=== PATIENT | female | born 1980 | race Caucasian/White ===

== ENCOUNTER 2020-10-07 07:48 | Inpatient (IN) ==
[2020-10-07] MEDS ORDERED: 0.9 % Sodium Chloride 1,000 ML IVC ONE (08:11)
[2020-10-07] MEDS ORDERED: Ondansetron 4 MG/2 ML VIAL IVP ONE (08:11)
[2020-10-07] MEDS ORDERED: Famotidine 20 MG/2 ML VIAL IVP ONE (08:12)
[2020-10-07 08:29] LABS: Basophils % 0.2 %; Eosinophils % 0.1 %; Hematocrit 45.2 % (35.3-44.9); Hemoglobin 14.9 g/dL (11.5-15.4); Immature Granulocytes % 0.5 % (0-4); Lymphocytes # 1.3 K/mcL (0.6-4.6); Lymphocytes % 6.8 %; Mean Corpuscular Hemoglobin 28.7 pg (28.0-33.3); Mean Corpuscular Volume 87.1 fL (83.0-100.0); Mean Platelet Volume 10.3 fL (9.4-12.4); Monocytes # 1.6 K/mcL (0.0-1.3); Monocytes % 8.4 %; Neutrophils # 15.5 K/mcL (1.6-8.9); Platelet Count 407 K/mcL (140-400); Red Blood Count 5.19 M/mcL (3.82-4.97); Red Cell Distribution Width 14.3 % (11.5-14.5); White Blood Count 18.5 K/mcL (4.3-11.1)
[2020-10-07] MEDS ORDERED: *HR* HYDROmorphone (PF) 1 MG/ML SYRINGE IVP ONE (08:38)
[2020-10-07] MEDS ORDERED: *HR* Promethazine 25 MG/ML VIAL IM ONE (08:50)
[2020-10-07] MEDS ORDERED: Isovue-370 500 ML BOTTLE IVP ONE (08:58)
[2020-10-07 09:22] LABS: Alanine Aminotransferase 1630 Units/L (7-52); Albumin 4.6 g/dL (3.5-5.7); Albumin/Globulin Ratio 1.6 (1.1-2.2); Alkaline Phosphatase 260 Units/L (34-104); Aspartate Amino Transferase 1082 Units/L (13-39); BUN/Creatinine Ratio 19 (6-26); Bilirubin,Total 2.1 mg/dL (0.3-1.0); Blood Urea Nitrogen 12 mg/dL (6-20); Calcium 9.6 mg/dL (8.6-10.3); Carbon Dioxide 23 mEq/L (23-29); Chloride 100 mEq/L (98-107); Globulin 2.9 g/dL (2.4-3.5); Glucose 169 mg/dL (70-105); Lipase > 1800 Units/L (11-82); Osmolality,Calculated 284 (280-300); Potassium 3.8 mEq/L (3.5-5.1); Sodium 135 mEq/L (136-145); Total Protein 7.5 g/dL (6.4-8.9); eGFR For African Americans > 60 (> 60); eGFR For Non-African Americans > 60 (> 60)
[2020-10-07] MEDS ORDERED: Naloxone 0.4 MG/ML INJ IVP PRN (12:30)
[2020-10-07] MEDS: *HR* HYDROmorphone (PF) 1 MG/ML SYRINGE IVP PRN ×5 (13:11→22:40)
[2020-10-07] MEDS: Ondansetron 4 MG/2 ML VIAL IVP PRN (13:11)
[2020-10-07] MEDS: Ringers Solution, Lactated 1,000 ML IVC SCH ×2 (13:11→18:36)
[2020-10-07] MEDS: MethylPREDNISolone 40 MG/ML VIAL IVP SCH (13:12)
[2020-10-07 13:35] LABS: Triglycerides 117 mg/dL (< 150)
[2020-10-07 14:08] LABS: Hepatitis B Surface Antibody < 3.10 mIU/mL
[2020-10-07 14:19] LABS: Hepatitis B Surface Antigen Nonreactive (Nonreactive)
[2020-10-07 14:48] LABS: Hepatitis B Core IgM Nonreactive (Nonreactive); Hepatitis C Virus Antibody Nonreactive (Nonreactive)
[2020-10-07 16:43] LABS: Hepatitis A Antibody IgM Nonreactive (Nonreactive)
[2020-10-07] MEDS: Pantoprazole 40 MG VIAL IVP SCH (17:35)
[2020-10-07] MEDS ORDERED: *HR* Heparin 5,000 UNIT/ML VIAL SQ SCH (18:00)
[2020-10-08] MEDS: Ringers Solution, Lactated 1,000 ML IVC SCH ×4 (00:07→20:50)
[2020-10-08] MEDS: Ondansetron 4 MG/2 ML VIAL IVP PRN (00:10)
[2020-10-08] MEDS: *HR* HYDROmorphone (PF) 1 MG/ML SYRINGE IVP PRN ×9 (00:45→22:30)
[2020-10-08] MEDS: *HR* Enoxaparin 40 MG/0.4 ML SYRINGE SQ SCH (05:05)
[2020-10-08] MEDS: Pantoprazole 40 MG VIAL IVP SCH ×2 (05:05→18:25)
[2020-10-08 05:56] LABS: Basophils % 0.1 %; Hematocrit 40.1 % (35.3-44.9); Immature Granulocytes % 0.4 % (0-4); Lymphocytes # 0.9 K/mcL (0.6-4.6); Lymphocytes % 5.1 %; Mean Corpuscular HGB Conc 32.2 g/dL (31.6-35.5); Mean Corpuscular Hemoglobin 28.9 pg (28.0-33.3); Mean Corpuscular Volume 89.9 fL (83.0-100.0); Mean Platelet Volume 10.3 fL (9.4-12.4); Monocytes % 6.1 %; Neutrophils # 15.2 K/mcL (1.6-8.9); Platelet Count 303 K/mcL (140-400); Red Blood Count 4.46 M/mcL (3.82-4.97); Red Cell Distribution Width 14.8 % (11.5-14.5); Segmented Neutrophils % 88.3 %; White Blood Count 17.2 K/mcL (4.3-11.1)
[2020-10-08 06:00] LABS: Hemoglobin 12.9 g/dL (11.5-15.4)
[2020-10-08 06:35] LABS: Alanine Aminotransferase 1427 Units/L (7-52); Albumin 3.9 g/dL (3.5-5.7); Albumin/Globulin Ratio 1.7 (1.1-2.2); Alkaline Phosphatase 239 Units/L (34-104); Aspartate Amino Transferase 472 Units/L (13-39); BUN/Creatinine Ratio 14 (6-26); Bilirubin,Direct 0.5 mg/dL (0.0-0.2); Bilirubin,Indirect 0.7 mg/dL (0.0-1.0); Bilirubin,Total 1.2 mg/dL (0.3-1.0); Blood Urea Nitrogen 7 mg/dL (6-20); Calcium 8.8 mg/dL (8.6-10.3); Carbon Dioxide 27 mEq/L (23-29); Chloride 102 mEq/L (98-107); Chol/HDL Ratio 3.3 (0-4.9); Cholesterol 189 mg/dL (< 200); Globulin 2.3 g/dL (2.4-3.5); Glucose 123 mg/dL (70-105); HDL Cholesterol 58 mg/dL (40-59); LDL Cholesterol,Calculated 119 mg/dL (< 100); Osmolality,Calculated 279 (280-300); Potassium 3.8 mEq/L (3.5-5.1); Sodium 135 mEq/L (136-145); Total Protein 6.2 g/dL (6.4-8.9); Triglycerides 60 mg/dL (< 150); eGFR For African Americans > 60 (> 60); eGFR For Non-African Americans > 60 (> 60)
[2020-10-08 07:43] LABS: Estimated Average Glucose 123 mg/dl; Hemoglobin A1C 5.9 %
[2020-10-08] MEDS: MethylPREDNISolone 40 MG/ML VIAL IVP SCH (08:49)
[2020-10-09] MEDS: *HR* HYDROmorphone (PF) 1 MG/ML SYRINGE IVP PRN ×7 (00:30→20:52)
[2020-10-09] MEDS: Ringers Solution, Lactated 1,000 ML IVC SCH ×6 (02:25→21:41)
[2020-10-09 04:53] LABS: Hematocrit 37.9 % (35.3-44.9); Hemoglobin 12.3 g/dL (11.5-15.4); Mean Corpuscular HGB Conc 32.5 g/dL (31.6-35.5); Mean Corpuscular Hemoglobin 29.1 pg (28.0-33.3); Mean Corpuscular Volume 89.6 fL (83.0-100.0); Mean Platelet Volume 10.5 fL (9.4-12.4); Platelet Count 251 K/mcL (140-400); Red Blood Count 4.23 M/mcL (3.82-4.97); Red Cell Distribution Width 14.8 % (11.5-14.5); White Blood Count 15.7 K/mcL (4.3-11.1)
[2020-10-09 05:41] LABS: Alanine Aminotransferase 856 Units/L (7-52); Albumin 3.7 g/dL (3.5-5.7); Albumin/Globulin Ratio 1.5 (1.1-2.2); Alkaline Phosphatase 187 Units/L (34-104); Aspartate Amino Transferase 109 Units/L (13-39); BUN/Creatinine Ratio 13 (6-26); Bilirubin,Direct 0.3 mg/dL (0.0-0.2); Bilirubin,Indirect 0.7 mg/dL (0.0-1.0); Blood Urea Nitrogen 6 mg/dL (6-20); Calcium 8.6 mg/dL (8.6-10.3); Carbon Dioxide 27 mEq/L (23-29); Chloride 100 mEq/L (98-107); Globulin 2.5 g/dL (2.4-3.5); Glucose 117 mg/dL (70-105); Osmolality,Calculated 279 (280-300); Potassium 3.4 mEq/L (3.5-5.1); Sodium 135 mEq/L (136-145); Total Protein 6.2 g/dL (6.4-8.9); eGFR For African Americans > 60 (> 60); eGFR For Non-African Americans > 60 (> 60)
[2020-10-09] MEDS: *HR* Enoxaparin 40 MG/0.4 ML SYRINGE SQ SCH (06:32)
[2020-10-09] MEDS: Pantoprazole 40 MG VIAL IVP SCH ×2 (06:32→17:16)
[2020-10-09] MEDS: MethylPREDNISolone 40 MG/ML VIAL IVP SCH (08:51)
[2020-10-09 15:40] LABS: Bacteria,Urine Few per hpf (None-Few); Bilirubin,Urine Negative (Negative); Blood,Urine Trace (Negative); Clarity,Urine Clear (Clear); Color,Urine Colorless (Yellow); Glucose,Urine (UA) Normal (Normal); Ketones,Urine Negative (Negative); Leukocyte Esterase,Urine Negative (Negative); Nitrite,Urine Negative (Negative); Protein,Urine Negative (Neg-Trace); RBC,Urine 0-3 per hpf (0-3); Specific Gravity,Urine 1.007 (1.010-1.025); Squamous Epithelial Cell,Urine Few per hpf (None-Few); Urobilinogen,Urine Normal (Normal); WBC,Urine 0-3 per hpf (0-3)
[2020-10-09] MEDS: *HR* OxyCODONE Immed Rel 5 MG TABLET PO PRN ×2 (18:04→23:20)
[2020-10-10] MEDS: Ringers Solution, Lactated 1,000 ML IVC SCH ×3 (02:40→19:37)
[2020-10-10] MEDS: Levothyroxine 25 MCG TABLET PO SCH (05:52)
[2020-10-10] MEDS: Pantoprazole 40 MG VIAL IVP SCH ×2 (05:52→16:52)
[2020-10-10] MEDS: *HR* HYDROmorphone (PF) 1 MG/ML SYRINGE IVP PRN (05:54)
[2020-10-10] MEDS: *HR* Enoxaparin 40 MG/0.4 ML SYRINGE SQ SCH (05:55)
[2020-10-10 06:28] LABS: Alanine Aminotransferase 481 Units/L (7-52); Albumin 3.6 g/dL (3.5-5.7); Albumin/Globulin Ratio 1.3 (1.1-2.2); Alkaline Phosphatase 150 Units/L (34-104); Aspartate Amino Transferase 31 Units/L (13-39); BUN/Creatinine Ratio 11 (6-26); Blood Urea Nitrogen 5 mg/dL (6-20); Calcium 8.9 mg/dL (8.6-10.3); Carbon Dioxide 29 mEq/L (23-29); Chloride 99 mEq/L (98-107); Globulin 2.7 g/dL (2.4-3.5); Glucose 131 mg/dL (70-105); Osmolality,Calculated 281 (280-300); Potassium 3.4 mEq/L (3.5-5.1); Sodium 136 mEq/L (136-145); Total Protein 6.3 g/dL (6.4-8.9); eGFR For African Americans > 60 (> 60); eGFR For Non-African Americans > 60 (> 60)
[2020-10-10 06:54] LABS: Hematocrit 38.8 % (35.3-44.9); Hemoglobin 12.3 g/dL (11.5-15.4); Mean Corpuscular HGB Conc 31.7 g/dL (31.6-35.5); Mean Corpuscular Hemoglobin 28.7 pg (28.0-33.3); Mean Corpuscular Volume 90.7 fL (83.0-100.0); Mean Platelet Volume 10.4 fL (9.4-12.4); Platelet Count 235 K/mcL (140-400); Red Blood Count 4.28 M/mcL (3.82-4.97); Red Cell Distribution Width 14.3 % (11.5-14.5); White Blood Count 14.7 K/mcL (4.3-11.1)
[2020-10-10] MEDS: MethylPREDNISolone 40 MG/ML VIAL IVP SCH (08:52)
[2020-10-10] MEDS: Cyclopentolate 2 ML BOTTLE LEFT EYE SCH (08:56)
[2020-10-10] MEDS ORDERED: Isovue-370 500 ML BOTTLE IVP ONE (10:52)
[2020-10-10] MEDS: *HR* OxyCODONE Immed Rel 5 MG TABLET PO PRN (19:39)
[2020-10-10] MEDS: Ondansetron 4 MG/2 ML VIAL IVP PRN (21:47)
[2020-10-10] MEDS ORDERED: Prochlorperazine 10 MG/2 ML VIAL IVP PRN (22:31)
[2020-10-11] MEDS: *HR* OxyCODONE Immed Rel 5 MG TABLET PO PRN ×2 (00:51→06:07)
[2020-10-11] MEDS: Ringers Solution, Lactated 1,000 ML IVC SCH ×3 (02:18→19:33)
[2020-10-11 05:06] LABS: Hematocrit 37.9 % (35.3-44.9); Hemoglobin 11.7 g/dL (11.5-15.4); Mean Corpuscular HGB Conc 30.9 g/dL (31.6-35.5); Mean Corpuscular Volume 90.7 fL (83.0-100.0); Mean Platelet Volume 10.5 fL (9.4-12.4); Platelet Count 242 K/mcL (140-400); Red Blood Count 4.18 M/mcL (3.82-4.97); Red Cell Distribution Width 14.2 % (11.5-14.5)
[2020-10-11 05:21] LABS: BUN/Creatinine Ratio 10 (6-26); Blood Urea Nitrogen 6 mg/dL (6-20); Calcium 8.7 mg/dL (8.6-10.3); Carbon Dioxide 31 mEq/L (23-29); Chloride 102 mEq/L (98-107); Glucose 116 mg/dL (70-105); Osmolality,Calculated 287 (280-300); Potassium 3.4 mEq/L (3.5-5.1); Sodium 139 mEq/L (136-145); eGFR For African Americans > 60 (> 60); eGFR For Non-African Americans > 60 (> 60)
[2020-10-11] MEDS: *HR* Enoxaparin 40 MG/0.4 ML SYRINGE SQ SCH (06:00)
[2020-10-11] MEDS: Pantoprazole 40 MG VIAL IVP SCH ×2 (06:00→19:33)
[2020-10-11] MEDS: Levothyroxine 25 MCG TABLET PO SCH (06:01)
[2020-10-11] MEDS: predniSONE 5 MG TABLET PO SCH (08:26)
[2020-10-11] MEDS: Cyclopentolate 2 ML BOTTLE LEFT EYE SCH (08:26)
[2020-10-11] MEDS ORDERED: Ibuprofen 600 MG TABLET PO ONE (20:18)
[2020-10-12] MEDS: Ringers Solution, Lactated 1,000 ML IVC SCH (02:42)
[2020-10-12 04:45] LABS: Hematocrit 34.6 % (35.3-44.9); Hemoglobin 10.7 g/dL (11.5-15.4); Mean Corpuscular HGB Conc 30.9 g/dL (31.6-35.5); Mean Corpuscular Hemoglobin 28.4 pg (28.0-33.3); Mean Corpuscular Volume 91.8 fL (83.0-100.0); Mean Platelet Volume 10.8 fL (9.4-12.4); Platelet Count 242 K/mcL (140-400); Red Blood Count 3.77 M/mcL (3.82-4.97); Red Cell Distribution Width 13.9 % (11.5-14.5); White Blood Count 12.7 K/mcL (4.3-11.1)
[2020-10-12 05:03] LABS: BUN/Creatinine Ratio 14 (6-26); Blood Urea Nitrogen 8 mg/dL (6-20); Calcium 8.5 mg/dL (8.6-10.3); Carbon Dioxide 27 mEq/L (23-29); Chloride 105 mEq/L (98-107); Glucose 135 mg/dL (70-105); Osmolality,Calculated 288 (280-300); Potassium 3.6 mEq/L (3.5-5.1); Sodium 139 mEq/L (136-145); eGFR For African Americans > 60 (> 60); eGFR For Non-African Americans > 60 (> 60)
[2020-10-12] MEDS: Levothyroxine 25 MCG TABLET PO SCH (06:12)
[2020-10-12] MEDS: *HR* Enoxaparin 40 MG/0.4 ML SYRINGE SQ SCH (06:12)
[2020-10-12] MEDS: Pantoprazole 40 MG VIAL IVP SCH (06:12)
[2020-10-12 07:33] VITALS: BP 131/79; PULSE 68; TEMP 98.5; O2SAT 95
[2020-10-12] MEDS: predniSONE 5 MG TABLET PO SCH (07:54)
[2020-10-12] MEDS: Cyclopentolate 2 ML BOTTLE LEFT EYE SCH (07:55)
[2020-10-12 09:07] LABS: Alanine Aminotransferase 191 Units/L (7-52); Albumin 3.2 g/dL (3.5-5.7); Albumin/Globulin Ratio 1.2 (1.1-2.2); Alkaline Phosphatase 105 Units/L (34-104); Aspartate Amino Transferase 11 Units/L (13-39); Bilirubin,Direct 0.1 mg/dL (0.0-0.2); Bilirubin,Indirect 0.2 mg/dL (0.0-1.0); Bilirubin,Total 0.3 mg/dL (0.3-1.0); Globulin 2.6 g/dL (2.4-3.5); Total Protein 5.8 g/dL (6.4-8.9)
== END 2020-10-12 12:34 | disposition home or self-care (01) | DRG 439 ==
LOC: EMEROOARM 07:48 → 3ANU 07:48 → SUATTDRO 12:25 → 3ANU 13:18 → SUATTDRO 10-09 14:51 → 3NENU 10-10 05:13
PROVIDERS: ADMIT Internal Medicine; ATTEND Internal Medicine